=== PATIENT | female | born 1955 | race Hispanic/Latino ===

== ENCOUNTER 2019-09-17 19:23 | Emergency (ER) | payer OTHER, MEDICARE ==
[2019-09-17] MEDS ORDERED: ONDANSETRON ODT 4 MG TAB ONE (20:03)
[2019-09-17] MEDS ORDERED: HYDROCODONE/ACETAMINOPHEN 5/325 MG TAB ONE (20:03)
== END 2019-09-17 21:42 | disposition home or self-care (01) ==
LOC: EDH 19:23
DX: S13.9XXA Sprain of joints and ligaments of unspecified parts of neck, initial encounter (principal); S09.90XA Unspecified injury of head, initial encounter; M54.5 Low back pain; V89.2XXA Person injured in unspecified motor-vehicle accident, traffic, initial encounter; Y93.89 Activity, other specified; Y92.410 Unspecified street and highway as the place of occurrence of the external cause; Y99.8 Other external cause status
CPT/HCPCS: 70450; 72100; 72125

== ENCOUNTER 2022-05-12 08:27 | Emergency (ER) | payer OTHER, MEDICARE ==
[~2022-05-12] VITALS: Ht 167.6 cm; Wt 89.8 kg
[2022-05-12 10:04] VITALS: BP 109/43
[2022-05-12] MEDS ORDERED: IBUP-2070 PO (10:34)
== END 2022-05-12 10:48 | disposition home or self-care (01) ==
LOC: EDH 08:27
DX: R51.9 Headache, unspecified (principal); Z20.822 Contact with and (suspected) exposure to COVID-19; J45.909 Unspecified asthma, uncomplicated; Z88.2 Allergy status to sulfonamides; Z88.1 Allergy status to other antibiotic agents; Z88.8 Allergy status to other drugs, medicaments and biological substances; Z88.5 Allergy status to narcotic agent; Z88.6 Allergy status to analgesic agent; Z90.89 Acquired absence of other organs; Z90.49 Acquired absence of other specified parts of digestive tract; Z98.890 Other specified postprocedural states
CPT/HCPCS: 99283; 87635; 87804 ×2; C9803

== ENCOUNTER 2022-05-24 02:26 | Emergency (ER) | payer OTHER, MEDICARE ==
[~2022-05-24] VITALS: Ht 167.6 cm; Wt 104.3 kg
[~2022-05-24 02:26] MED LIST: IBUP-2070 PO
[2022-05-24 02:59] LABS: BASOPHILS % (AUTO) 0.4 % (0.0-5.0); EOSINOPHILS % (AUTO) 2.1 % (0.0-8.0); HEMATOCRIT 38.1 % (36-48); LYMPHOCYTES % (AUTO) 27.3 % (21.0-51.0); MEAN CORPUSCULAR HEMOGLOBIN 32.1 pg (27.0-33.0); MEAN CORPUSCULAR HGB CONC 34.1 g/dL (32.0-36.0); MEAN CORPUSCULAR VOLUME 94.1 fL (79-99); MONOCYTES % (AUTO) 10.5 % (3.0-13.0); NEUTROPHILS % (AUTO) 59.3 % (40.0-77.0); PLATELET COUNT (AUTO) 291 K/uL (130-400); RED BLOOD CELL COUNT(AUTO) 4.05 MIL/uL (4.00-5.50); RED CELL DISTRIBUTION WIDTH 11.7 % (11.0-15.5); WHITE BLOOD COUNT (AUTO) 8.4 K/uL (4.8-10.8)
[2022-05-24 03:12] LABS: CREATININE 0.8 mg/dL (0.5-1.5); POTASSIUM 3.1 mmol/L (3.5-5.1)
[2022-05-24 03:16] LABS: ALBUMIN 3.8 g/dL (3.5-5.0); TOTAL PROTEIN, SERUM 7.6 g/dL (6.0-8.3)
[2022-05-24] MEDS: KETOROLAC 15MG/ML VIAL (15MG/ML) IV ONE (04:00)
[2022-05-24 04:25] VITALS: BP 131/51
[2022-05-24] MEDS: OSELTAMIVIR PHOSPHATE 75 MG CAP PO SCH (04:30)
[2022-05-24] MEDS ORDERED: D-ME118S47 PO (04:36)
[2022-05-24] MEDS ORDERED: ACET-66 PO (04:36)
[2022-05-24] MEDS ORDERED: OSEL75 PO (04:36)
== END 2022-05-24 04:54 | disposition home or self-care (01) ==
LOC: EDH 02:26
DX: J10.1 Influenza due to other identified influenza virus with other respiratory manifestations (principal); Z20.822 Contact with and (suspected) exposure to COVID-19; Z88.0 Allergy status to penicillin; Z88.1 Allergy status to other antibiotic agents; Z88.2 Allergy status to sulfonamides; Z88.5 Allergy status to narcotic agent; Z88.6 Allergy status to analgesic agent; Z88.8 Allergy status to other drugs, medicaments and biological substances; Z79.1 Long term (current) use of non-steroidal anti-inflammatories (NSAID)
CPT/HCPCS: 99285; 96374; 71045; 87635; 84484; 80053; 85025; 87804 ×2; 36415; 93005; C9803; J1885

== ENCOUNTER → 2022-12-11 | Outpatient (CLI) | payer OTHER, MEDICARE ==
[~2022-12-11] MED LIST changes: +ACET-66 PO; +D-ME118S47 PO; +OSEL75 PO
== END | disposition home or self-care (01) ==
LOC: RAH 13:45
PROVIDERS: ATTEND Internal Medicine
DX: M79.671 Pain in right foot (principal)
CPT/HCPCS: 73630

== ENCOUNTER 2023-06-24 00:05 | Emergency (ER) | payer OTHER, MEDICARE ==
[~2023-06-24] VITALS: Ht 167.6 cm; Wt 89.8 kg
[~2023-06-24 00:05] MED LIST changes: +LORA-868 PO
[2023-06-24] MEDS ORDERED: GABA300C PO (01:37)
[2023-06-24 02:06] VITALS: BP 116/56; PULSE 73; RESP 16; O2SAT 98
== END 2023-06-24 02:08 | disposition home or self-care (01) ==
LOC: EDH 00:05
DX: S80.02XA Contusion of left knee, initial encounter (principal); S80.01XA Contusion of right knee, initial encounter; Z88.1 Allergy status to other antibiotic agents; Z88.2 Allergy status to sulfonamides; Z88.5 Allergy status to narcotic agent; Z88.6 Allergy status to analgesic agent; W01.10XA Fall on same level from slipping, tripping and stumbling with subsequent striking against unspecified object, initial encounter; Y93.01 Activity, walking, marching and hiking; Y92.89 Other specified places as the place of occurrence of the external cause; Y99.8 Other external cause status; Z88.0 Allergy status to penicillin
CPT/HCPCS: 73590

== ENCOUNTER 2024-02-23 18:46 | Emergency (ER) | payer OTHER, MEDICARE ==
[~2024-02-23] VITALS: Ht 167.6 cm; Wt 95.3 kg
[~2024-02-23 18:46] MED LIST changes: +BROM118S48 PO; -D-ME118S47 PO; +GABA300C PO
[2024-02-23 19:57] LABS: BASOPHILS # (AUTO) 0.05 K/uL (0.00-0.20); BASOPHILS % (AUTO) 0.6 % (0.0-5.0); EOSINOPHILS # (AUTO) 0.27 K/uL (0.00-0.70); EOSINOPHILS % (AUTO) 3.1 % (0.0-8.0); HEMATOCRIT 39.7 % (36-48); IMMATURE GRANULOCYTE ABSOLUTE 0.02 K/uL (0-1); LYMPHOCYTES # (AUTO) 2.3 K/uL (1.0-4.8); LYMPHOCYTES % (AUTO) 25.8 % (21.0-51.0); MEAN CORPUSCULAR HEMOGLOBIN 32.5 pg (27.0-33.0); MEAN CORPUSCULAR VOLUME 95.7 fL (79-99); MONOCYTES # (AUTO) 0.6 K/uL (0.1-1.0); MONOCYTES % (AUTO) 7.1 % (3.0-13.0); NEUTROPHILS # (AUTO) 5.5 K/uL (1.8-7.7); NEUTROPHILS % (AUTO) 63.2 % (40.0-77.0); PLATELET COUNT (AUTO) 289 K/uL (130-400); RED BLOOD CELL COUNT(AUTO) 4.15 MIL/uL (4.00-5.50); RED CELL DISTRIBUTION WIDTH 11.8 % (11.0-15.5); WHITE BLOOD COUNT (AUTO) 8.7 K/uL (4.8-10.8)
[2024-02-23 20:08] LABS: CREATININE 0.8 mg/dL (0.5-1.0); POTASSIUM 4.1 mmol/L (3.5-5.1)
[2024-02-23 20:09] LABS: INR <= 0.93 (0.85-1.15); PROTHROMBIN TIME 10.6 SEC (9.6-11.6)
[2024-02-23 20:12] LABS: ALBUMIN 3.5 g/dL (3.5-5.0); BILIRUBIN,TOTAL 0.3 mg/dL (0.2-1.0); TOTAL PROTEIN, SERUM 7.6 g/dL (6.0-8.3)
[2024-02-23 20:33] LABS: B-TYPE NATRIURETIC PEPTIDE 7 pg/mL (0-100)
[2024-02-23] MEDS: 0.9%NACL 1000ML 1,000 ML IV ONE (23:50)
[2024-02-23] MEDS: DiphenhydrAMINE HCL 50 MG/ML VIAL IV STA (23:50)
[2024-02-23 23:56] LABS: APPEARANCE,URINE CLEAR (CLEAR); BILIRUBIN,URINE NEGATIVE (NEGATIVE); COLOR,URINE LIGHT-YELLOW (YELLOW); GLUCOSE, URINE (UA) NEGATIVE (NEGATIVE); KETONES,URINE NEGATIVE (NEGATIVE); LEUKOCYTE ESTERASE ,URINE NEGATIVE Leu/uL (NEGATIVE); NITRATE,URINE NEGATIVE (NEGATIVE); OCCULT BLOOD,URINE NEGATIVE (NEGATIVE); PROTEIN,URINE NEGATIVE (NEGATIVE); UROBILINOGEN,URINE 0.2 mg/dL (0.2-1.0)
[2024-02-23 23:58] LABS: ADD UA MICROSCOPIC NO
[2024-02-24 00:03] LABS: AMPHET/METH SCREEN,URINE NEGATIVE (NEGATIVE); BARBITURATE SCREEN, URINE NEGATIVE (NEGATIVE); BENZODIAZEPINES SCREEN,URINE NEGATIVE (NEGATIVE); CANNABINOID SCREEN,URINE NEGATIVE (NEGATIVE); COCAINE SCREEN,URINE NEGATIVE (NEGATIVE); OPIATE SCREEN,URINE NEGATIVE (NEGATIVE); PHENCYCLIDINE SCREEN,URINE NEGATIVE (NEGATIVE)
[2024-02-24] MEDS ORDERED: IOHEXOL-350 75 ML VIAL IV ONE (00:44)
[2024-02-24 03:01] VITALS: BP 106/46; PULSE 59; RESP 18; O2SAT 98
== END 2024-02-24 03:45 | disposition home or self-care (01) ==
LOC: EDH 18:46
DX: G43.109 Migraine with aura, not intractable, without status migrainosus (principal); H53.9 Unspecified visual disturbance; Z79.899 Other long term (current) drug therapy; Z98.890 Other specified postprocedural states; Z88.0 Allergy status to penicillin; Z88.1 Allergy status to other antibiotic agents; Z88.2 Allergy status to sulfonamides; Z88.5 Allergy status to narcotic agent; Z88.6 Allergy status to analgesic agent; Z88.8 Allergy status to other drugs, medicaments and biological substances
CPT/HCPCS: 99285; 70496; 96360; 71045; 96361; 82550; 84484; 80053; 83880; 80305; 85025; 85610; 36415; 70498; 93005; 70450; 81003; J7030; Q9967; J1200

== ENCOUNTER 2024-08-17 00:50 | Emergency (ER) | payer OTHER, MEDICARE ==
[~2024-08-17] VITALS: Ht 167.6 cm; Wt 95.3 kg
[2024-08-17 01:24] LABS: ADD UA MICROSCOPIC YES; APPEARANCE,URINE CLOUDY (CLEAR); BILIRUBIN,URINE NEGATIVE (NEGATIVE); COLOR,URINE LIGHT-YELLOW (YELLOW); GLUCOSE, URINE (UA) NEGATIVE (NEGATIVE); KETONES,URINE NEGATIVE (NEGATIVE); LEUKOCYTE ESTERASE ,URINE NEGATIVE Leu/uL (NEGATIVE); NITRATE,URINE NEGATIVE (NEGATIVE); OCCULT BLOOD,URINE NEGATIVE (NEGATIVE); PROTEIN,URINE NEGATIVE (NEGATIVE); UROBILINOGEN,URINE 0.2 mg/dL (0.2-1.0)
[2024-08-17 01:31] LABS: BACTERIA,URINE RARE /HPF (None Seen); MUCUS,URINE RARE LPF (None Seen); RBC,URINE 0-1 /HPF (0-1); SQUAMOUS EPITHELIAL CELL,UR FEW /HPF (0-2)
[2024-08-17 01:32] LABS: BASOPHILS # (AUTO) 0.05 K/uL (0.00-0.20); BASOPHILS % (AUTO) 0.6 % (0.0-5.0); EOSINOPHILS % (AUTO) 4.7 % (0.0-8.0); HEMATOCRIT 40.6 % (36-48); IMMATURE GRANULOCYTE ABSOLUTE 0.02 K/uL (0-1); LYMPHOCYTES % (AUTO) 34.8 % (21.0-51.0); MEAN CORPUSCULAR HEMOGLOBIN 32.7 pg (27.0-33.0); MEAN CORPUSCULAR HGB CONC 33.7 g/dL (32.0-36.0); MEAN CORPUSCULAR VOLUME 96.9 fL (79-99); MONOCYTES # (AUTO) 0.7 K/uL (0.1-1.0); MONOCYTES % (AUTO) 7.7 % (3.0-13.0); NEUTROPHILS # (AUTO) 4.5 K/uL (1.8-7.7); PLATELET COUNT (AUTO) 300 K/uL (130-400); RED BLOOD CELL COUNT(AUTO) 4.19 MIL/uL (4.00-5.50); RED CELL DISTRIBUTION WIDTH 11.9 % (11.0-15.5); WHITE BLOOD COUNT (AUTO) 8.6 K/uL (4.8-10.8)
[2024-08-17] MEDS: ondanSETRON 4MG INJ IVP ONE (01:37)
[2024-08-17] MEDS: 0.9%NACL 1000ML 1,000 ML IV ONE (01:37)
[2024-08-17 01:54] LABS: CREATININE 0.8 mg/dL (0.5-1.0)
[2024-08-17 02:07] VITALS: TEMP 97.8
[2024-08-17] MEDS ORDERED: IOHEXOL 350 MG/ML 100ML INFUS..BTL IV ONE (02:08)
[2024-08-17] MEDS: morPHINE 4 MG SYG IVP ONE (04:40)
[2024-08-17 05:07] VITALS: BP 131/60; PULSE 60; RESP 18; O2SAT 96
== END 2024-08-17 05:26 | disposition home or self-care (01) ==
LOC: EDH 00:50
DX: N89.8 Other specified noninflammatory disorders of vagina (principal); Z88.2 Allergy status to sulfonamides; Z88.1 Allergy status to other antibiotic agents; Z88.5 Allergy status to narcotic agent; Z88.8 Allergy status to other drugs, medicaments and biological substances
CPT/HCPCS: 99285; 74177; 96374; 96375; 80048; 85025; 87210; 87491; 87591; 81001; 36415; J7030; J2405; J2270; Q9967